=== PATIENT | female | born 1940 | race Caucasian/White ===

== ENCOUNTER 2017-04-30 05:23 | Day surgery (SDC) | payer OTHER ==
[~2017-04-30] VITALS: Ht 160 cm; Wt 93.8 kg
[~2017-04-30 05:23] MED LIST: B-COMPLEX-VITA1 EACH PO; CALCIUM + D3 E1 EACH PO; DAILY VALUE1 EACH PO; GINKGO BILOBA40 M1 PO; GLUCOSA-CHOND-1 EACH PO; LISINOPRIL10 MG PO; OXYCODONE-ACET1 EACH PO; STOOL SOFTENER100 MG PO; TRAMADOL HCL50 MG PO; TYLENOL EXTRA500 MG PO; TYLENOL WITH C1 EACH PO; VICODIN,LORT1 TABLET PO
[2017-04-30 06:49] VITALS: BP 116/74
[2017-04-30 10:10] VITALS: BP 134/72
[2017-04-30 11:30] VITALS: BP 127/68
[2017-04-30 13:32] VITALS: BP 124/61
== END 2017-04-30 13:48 | disposition home or self-care (01) ==
LOC: SDC 05:23
DX: S52.022A Displaced fracture of olecranon process without intraarticular extension of left ulna, initial encounter for closed fracture (principal); S52.122A Displaced fracture of head of left radius, initial encounter for closed fracture; I10 Essential (primary) hypertension; Z82.49 Family history of ischemic heart disease and other diseases of the circulatory system; Z83.3 Family history of diabetes mellitus; Z88.0 Allergy status to penicillin; W10.9XXA Fall (on) (from) unspecified stairs and steps, initial encounter
CPT/HCPCS: 73070; 76000; 93005; C1713; J0330; J0690; J1100; J1170; J2405; J2795; J3010; S0020